=== PATIENT | female | born 1980 | race American Indian/Alaskan Native ===

== ENCOUNTER 2021-09-09 18:21 | Emergency (ER) | payer SELFPAY ==
[2021-09-09 19:37] LABS: Bilirubin,Urine NEG (Negative); Blood,Urine NEG (Negative); Color,Urine Yellow (Yellow); Protein,Urine <15 mg/dL mg/dL (Negative)
[2021-09-09 19:47] LABS: Benzodiazepines Screen,Urine Negative; Cocaine Screen,Urine Negative; Methadone Screen,Urine Negative; Opiate Screen,Urine Negative
[2021-09-09 20:01] LABS: Amphetamine Screen,Urine Positive; Cannabinoid Screen,Urine Positive
[2021-09-09 20:03] LABS: Mucus,Urine 1+ /HPF
[2021-09-09 20:11] LABS: Basophils % (Auto) 0.6 % (0.0-1.8); Eosinophils % (Auto) 0.3 % (0.0-4.3); Hematocrit 37.9 % (30.3-42.9); Hemoglobin 12.4 gm/dl (10.1-14.3); Lymphocytes # (Auto) 2.2 K/mm3 (1.2-5.4); Mean Corpuscular HGB Conc 33 % (30-34); Mean Corpuscular Volume 89 fl (79-97); Monocytes # (Auto) 0.6 K/mm3 (0.0-0.8); Monocytes % (Auto) 8.3 % (0.0-7.3); Platelet Count 231 K/mm3 (140-440); Red Blood Count 4.26 M/mm3 (3.65-5.03); Red Cell Distribution Width 14.5 % (13.2-15.2)
[2021-09-09 20:13] LABS: Blood Urea Nitrogen 14 mg/dL (7-17); Calcium 9.3 mg/dL (8.4-10.2); Hemolysis Index 10
[2021-09-09 20:20] LABS: BUN/Creatinine Ratio 20
[2021-09-10] MEDS ORDERED: ACETAMINOPHEN 325 MG TAB PO ONE (03:02)
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
--- NOTE | 2021-09-10 12:36 | Emergency Department Report ---
ED General Adult HPI - General Chief complaint: Psych Stated complaint: SI Time Seen by Provider: 09/10/21 11:03 Source: patient Mode of arrival: Ambulatory Limitations: No Limitations - History of Present Illness Initial comments: patient presents with complaints of having suicidal thoughts. Denies homicidal thoughts. Endorses auditory hallucinations (hears voices). Denies visual hallucinations. Has a hx of depression. Severity scale (0 -10): 3 - Related Data Allergies Allergy/AdvReac Type Severity Reaction Status Date / Time hydrocodone Allergy Hives Verified 09/09/21 18:55 ED Review of Systems ROS: Stated complaint: SI Other details as noted in HPI Comment: All other systems reviewed and negative Constitutional: chills, fever ED Past Medical Hx - Past Medical History Previous Medical History?: Yes Hx Psychiatric Treatment: Yes ED Physical Exam - General Limitations: No Limitations General appearance: alert, in no apparent distress - Head Head exam: Present: atraumatic, normocephalic - Eye Eye exam: Present: PERRL, EOMI - ENT ENT exam: Present: mucous membranes moist, other (airway patent) - Neck Neck exam: Present: other (supple; no JVD) - Respiratory Respiratory exam: Present: other (good air entryt, nml I:E, CTAB, no use of NIRAV) - Cardiovascular Cardiovascular Exam: Present: regular rate. Absent: rubs, gallop - GI/Abdominal GI/Abdominal exam: Present: soft, normal bowel sounds. Absent: distended, tenderness, guarding - Extremities Exam Extremities exam: Present: full ROM. Absent: tenderness - Back Exam Back exam: Present: full ROM. Absent: tenderness - Neurological Exam Neurological exam: Present: alert, oriented X3, CN II-XII intact. Absent: motor sensory deficit - Psychiatric Psychiatric exam: Present: suicidal ideation, other (labile affect; (+) auditory hallucinations). Absent: homicidal ideation - Skin Skin exam: Present: warm, normal color ED Course Vital Signs 09/09/21 18:51 Temperature 99.1 F Pulse Rate 82 Respiratory 18 Rate Blood Pressure 125/88 O2 Sat by Pulse 98 Oximetry ED Medical Decision Making - Lab Data Result diagrams: 09/09/21 19:22 09/09/21 19:22 Laboratory Tests 09/09/21 09/09/21 09/09/21 19:22 19:22 19:22 WBC RBC Hgb Hct MCV MCH MCHC RDW Plt Count Lymph % (Auto) [place] % (Auto) Eos % (Auto) Baso % (Auto) Lymph # (Auto) [place] # (Auto) Eos # (Auto) Baso # (Auto) Seg Neutrophils % Seg Neutrophils # Sodium 140 Potassium 4.4 Chloride 103.8 Carbon Dioxide 23 Anion Gap 18 BUN 14 Creatinine 0.7 Estimated GFR > 60 BUN/Creatinine Ratio 20 Glucose 84 Calcium 9.3 Urine Color Urine Turbidity Urine pH Ur Specific [place] Urine Protein Urine Glucose (UA) Urine Ketones Urine Blood Urine Nitrite Urine Bilirubin Urine Urobilinogen Ur Leukocyte Esterase Urine WBC (Auto) Urine RBC (Auto) U Epithel Cells (Auto) Urine Mucus Salicylates < 0.3 L Urine Opiates Screen Urine Methadone Screen Acetaminophen 5.0 L Ur Barbiturates Screen Ur Phencyclidine Scrn Ur Amphetamines Screen U Benzodiazepines Scrn Urine Cocaine Screen U Marijuana (THC) Screen Drugs of Abuse Note Plasma/Serum Alcohol 09/09/21 09/09/21 09/09/21 19:22 19:22 Unknown WBC 6.8 RBC 4.26 Hgb 12.4 Hct 37.9 MCV 89 MCH 29 MCHC 33 RDW 14.5 Plt Count 231 Lymph % (Auto) 32.0 [place] % (Auto) 8.3 H Eos % (Auto) 0.3 Baso % (Auto) 0.6 Lymph # (Auto) 2.2 [place] # (Auto) 0.6 Eos # (Auto) 0.0 Baso # (Auto) 0.0 Seg Neutrophils % 58.8 Seg Neutrophils # 4.0 Sodium Potassium Chloride Carbon Dioxide Anion Gap BUN Creatinine Estimated GFR BUN/Creatinine Ratio Glucose Calcium Urine Color Yellow Urine Turbidity Cloudy Urine pH 6.0 Ur Specific [place] 1.023 Urine Protein <15 mg/dl Urine Glucose (UA) Neg Urine Ketones 20 Urine Blood Neg Urine Nitrite Neg Urine Bilirubin Neg Urine Urobilinogen 2.0 Ur Leukocyte Esterase Tr Urine WBC (Auto) 9.0 H Urine RBC (Auto) 2.0 U Epithel Cells (Auto) 50.0 H Urine Mucus 1+ Salicylates Urine Opiates Screen Urine Methadone Screen Acetaminophen Ur Barbiturates Screen Ur Phencyclidine Scrn Ur Amphetamines Screen U Benzodiazepines Scrn Urine Cocaine Screen U Marijuana (THC) Screen Drugs of Abuse Note Plasma/Serum Alcohol < 0.01 09/09/21 Unknown WBC RBC Hgb Hct MCV MCH MCHC RDW Plt Count Lymph % (Auto) [place] % (Auto) Eos % (Auto) Baso % (Auto) Lymph # (Auto) [place] # (Auto) Eos # (Auto) Baso # (Auto) Seg Neutrophils % Seg Neutrophils # Sodium Potassium Chloride Carbon Dioxide Anion Gap BUN Creatinine Estimated GFR BUN/Creatinine Ratio Glucose Calcium Urine Color Urine Turbidity Urine pH Ur Specific [place] Urine Protein Urine Glucose (UA) Urine Ketones Urine Blood Urine Nitrite Urine Bilirubin Urine Urobilinogen Ur Leukocyte Esterase Urine WBC (Auto) Urine RBC (Auto) U Epithel Cells (Auto) Urine Mucus Salicylates Urine Opiates Screen Negative Urine Methadone Screen Negative Acetaminophen Ur Barbiturates Screen Negative Ur Phencyclidine Scrn Negative Ur Amphetamines Screen Positive U Benzodiazepines Scrn Negative Urine Cocaine Screen Negative U Marijuana (THC) Screen Positive Drugs of Abuse Note Disclamer Plasma/Serum Alcohol Asymptomatic pyuria (denies dysuria, frequency, urgency). No leukocytosis. Next doc to FU urine culture - Medical Decision Making 1013 signed. Psych consulted. Critical care attestation.: If time is entered above; I have spent that time in minutes in the direct care of this critically ill patient, excluding procedure time. ED Disposition Clinical Impression: Suicidal ideation, Pyuria Disposition: 30 STILL A PATIENT Is pt being admited?: No Does the pt Need Aspirin: No Condition: Stable Additional Instructions: Professional and Agency Contacts To help [facility] (16/10) [place] Crisis Line: Suicide Prevention Line: Crisis Text Line: Text START to [phone] Emergency: 911 Outpatient COMMUNITY Behavioral Health Resources: [facility]: [facility] [address] [place], [place] [address] [facility] [address] [place] [address] Sunday thru Sunday - 8am - 5pm Call to schedule an assessment for mental health and substance abuse prog james [facility] Address: [address] [place] [address] Sunday thru Sunday- 7am-2pm [facility] Address: [address], [place] [address] Sunday thru Sunday: 8:30AM-5PM Time of Disposition: 15:00 (Patient care transferred to Dr. Francois (oncoming ER doc @ end of my shift). Sign out was given by me to this physician. )
[2021-09-10] MEDS: ESCITALOPRAM 10 MG TAB PO SCH (14:57)
[2021-09-10] MEDS ORDERED: traZODone 50 MG TAB PO SCH (22:00)
--- NOTE | 2021-09-11 09:31 | Progress Note ---
Subjective - Reason for Consult Consult date: 09/11/21 Reason for consult: SI - Chief Complaint Chief complaint: The patient was seen today. She is pleasant and upbeat. She is smiling. The patient says she feels "much better." She says she got a good night's sleep and had a lot of time to think and reflect. She also says "the talk we had made me think. I thought about everything you said and talked to my family." The patient says "the medication made me feel good too." She denies SI/HI. The patient says "I have no negative thoughts whatsoever. You don't have to worry about me doing anything like that." She denies hallucinations of any kind. The patient states "I'm good to go home." REVIEW OF SYSTEMS Constitutional: Negative for weight loss ENT: Negative for stridor Respiratory: Negative for cough or hemoptysis All other systems reviewed and are negative MENTAL STATUS EXAMINATION General Appearance and Behavior: Age appropriate, wearing appropriate clothes, cooperative, polite with questioning, good eye contact Cooperation: cooperative, irritable, guarded Psychomotor Behavior: Psychomotor normal Mood: much better Affect and affective range: congruent with stated mood, tearful Thought Process: Goal directed Thought Content: Reality oriented, optimistic Speech: Normal volume, Regular rate and rhythm Suicidal Ideation: Denies Homicidal Ideation: Denies Hallucination: Denies Delusions: None elicited Impulse Control: Good Insight and Judgment: Good Memory: Good Attention: attentive Orientation: Alert and oriented Diagnoses: Major Depressive Disorder Treatment Plan d/c 1013 Lexapro 10mg po daily Trazodone 50mg po qhs Sitter: per primary Medical: Per primary Disposition: Do not recommend acute psychiatric inpatient treatment. The patient understands that if SI/HI or any fear of endangerment are to arise she is to seek immediate assistance. The quality control assessor to further discuss safety plan, and give the patient all necessary outpatient resources, including CBT, med management Will sign off. Thanks Case staffed with Dr. Colon Mental Status Exam - Vital signs Last Vital Signs Temp 98.8 F 09/10/21 22:14 Pulse 64 09/10/21 22:14 Resp 16 09/10/21 22:14 BP 111/62 09/10/21 22:14 Pulse Ox 97 09/11/21 05:09
[2021-09-11] MEDS: ESCITALOPRAM 10 MG TAB PO SCH (10:53)
[2021-09-11 11:21] VITALS: BP 112/74
== END 2021-09-11 12:10 | disposition home or self-care (01) ==
LOC: ED 18:21
DX: R45.851 Suicidal ideations (principal); R82.81 Pyuria; Z88.8 Allergy status to other drugs, medicaments and biological substances
CPT/HCPCS: 36415; 80048; 80307; 80320; 81001; 85025; 87086; 99283; 99284; G0480